=== PATIENT | female | born 1955 | race Caucasian/White ===

== ENCOUNTER 2023-10-20 13:06 | Emergency (ER) | payer MEDICARE ==
[2023-10-20] MEDS ORDERED: Aspirin Chewable 81 MG TAB ONE (14:01)
[2023-10-20] MEDS ORDERED: Nitroglycerin 0.4 MG TAB 1 EACH ONE (14:02)
[2023-10-20 14:06] LABS: #Basophils 0.1 10x3/uL (0.0-0.2); #Eosinphils 0.2 10x3/uL (0.0-0.5); #Monocytes 1.7 10x3/uL (0.0-1.1); #Neutrophils 10.6 10x3/uL (1.5-8.4); %Basophils 0.6 % (0.0-2.0); %Eosinophils 1.1 % (0.0-6.0); %Monocytes 11.3 % (0.0-10.0); %Neutrophils 68.5 % (40.0-75.0); Mean Corpuscular HGB CONC 35.7 g/dL (32.0-36.0); Mean Corpuscular Hemoglobin 32.3 pg (27.0-33.0); Mean Corpuscular Volume 90.5 fl (81.6-98.3); Mean Platelet Volume 8.8 fl (7.4-10.4); Platelet Count 391 10x3/uL (150-450); Red Blood Cell (RBC) Count 4.64 10x6/uL (3.90-5.03); White Blood Cell (WBC) Count 15.4 10x3/uL (3.5-10.5)
[2023-10-20 14:22] LABS: ALT (SGPT) 27 U/L (8-55); AST (SGOT) 25 U/L (5-34); Albumin 4.7 g/dL (3.4-4.8); Alkaline Phosphatase 59 U/L (40-110); Anion Gap 14 mmol/L (10-20); BUN (Urea Nitrogen) 14 mg/dL (9.8-20.1); Bilirubin, Total 1.6 mg/dL (0.2-1.2); Calc. Creatinine Clearance 0 mL/min (70-130); Calcium 9.4 mg/dL (7.8-10.44); Carbon Dioxide 22 mmol/L (23-31); Chloride 105 mmol/L (98-107); Estimated GFR 84; Globulin 2.4 g/dL (2.4-3.5); Glucose 103 mg/dL (80-115); Lipase 19 U/L (8-78); Potassium 4.1 mmol/L (3.5-5.1); Protein, Total 7.1 g/dL (5.8-8.1); Sodium 137 mmol/L (136-145)
[2023-10-20 14:25] LABS: Troponin I Less than 0.010 ng/mL (< 0.028)
[2023-10-20] MEDS ORDERED: Acetaminophen 500 MG TAB ONE (14:32)
[2023-10-20] MEDS ORDERED: Iopamidol 370 76% 100 ML VIAL ONE (14:44)
== END 2023-10-20 19:08 | disposition home or self-care (01) ==
LOC: CSHERS 13:06
DX: I26.99 Other pulmonary embolism without acute cor pulmonale (principal)
CPT/HCPCS: 71045; 71275; 80053; 83690; 84484; 85025; 93005; Q9967